=== PATIENT | male | born 1955 | race Caucasian/White ===

== ENCOUNTER 2020-02-28 10:59 | Day surgery (SDC) | payer BC ==
[~2020-02-28] VITALS: Ht 193 cm; Wt 108.9 kg
[2020-02-28] MEDS ORDERED: SODIUM CHLORIDE 0.9% 1,000 ML IVB ONE (13:13)
[2020-02-28] MEDS ORDERED: GLUCAGON HYDROCHLORIDE (RDNA) 1 MG VIAL IV ONE ×2 (13:30→14:15)
[2020-02-28] MEDS ORDERED: FAMOTIDINE (10MG/ML) 2ML VL IV ONE (13:30)
[2020-02-28] MEDS ORDERED: SODIUM CHLORIDE LOCK 10 ML ONE (14:53)
[2020-02-28] MEDS ORDERED: LIDOCAINE VISCOUS 2% 15ML UD ONE (14:53)
[2020-02-28] MEDS: fentaNYL CITRATE 100 MCG/2 ML VL ONE ×3 (15:09→15:14)
[2020-02-28] MEDS: MIDAZOLAM HCL 5 MG/ML-1ML VIAL ONE ×4 (15:09→16:57)
[2020-02-28] MEDS: diphenhdrAMINE HCL 50 MG/1 ML VL ONE ×2 (15:09→15:12)
[2020-02-28 15:58] VITALS: BP 140/82
[2020-02-28 16:33] LABS: Basophils # (auto) 0 10 ^3/uL (0-0.2); Basophils % (auto) 0.4 % (0.0-2.0); Eosinophils # (auto) 0 10 ^3/uL (0-0.8); Eosinophils % (auto) 0.4 % (0.0-7.0); Hematocrit 47.8 % (41.0-53.0); Hemoglobin 16.3 g/dL (13.5-17.5); Mean Corpuscular Hemoglobin 31.4 pg (28.0-32.0); Mean Corpuscular Volume 92.3 fL (80.0-100.0); Monocytes # (auto) 0.9 10 ^3/uL (0-1.3); Monocytes % (auto) 8.7 % (0.0-12.0); Neutrophils # (auto) 8.4 10 ^3/uL (1.6-8.6); Neutrophils % (auto) 80.5 % (37.0-80.0); Platelet Count (auto) 218 10^3/uL (140-450); Red Blood Cells 5.18 10^6/uL (4.5-5.90); Red Cell Distribution Width 14.1 % (11.8-14.3); White Blood Cell 10.4 10^3/uL (4.4-10.8)
[2020-02-28 16:48] LABS: INR 1.01 (0.9-1.15); Partial Thromboplastin Time 27.6 sec (23.64-32.05)
[2020-02-28 16:49] LABS: Calcium 8.7 mg/dL (8.5-10.1); Potassium 3.8 mmol/L (3.5-5.1)
[2020-02-28 16:52] LABS: BUN/Creatinine Ratio 12.8; Bilirubin, Total 1.1 mg/dL (0.2-1.0); Total Protein 7.2 g/dL (6.4-8.2)
== END 2020-02-28 17:39 | disposition home or self-care (01) ==
LOC: ER 10:59 → OR 1 11:00 → ER 17:38 → OR 1 17:39
PROVIDERS: ATTEND Internal Medicine Gastroenterology
DX: T18.128A Food in esophagus causing other injury, initial encounter (principal); K29.50 Unspecified chronic gastritis without bleeding; I25.10 Atherosclerotic heart disease of native coronary artery without angina pectoris; I25.2 Old myocardial infarction; M41.9 Scoliosis, unspecified; Z96.651 Presence of right artificial knee joint; Z11.59 Encounter for screening for other viral diseases; Z98.890 Other specified postprocedural states; Z79.899 Other long term (current) drug therapy; X58.XXXA Exposure to other specified factors, initial encounter; Y93.89 Activity, other specified; Y92.89 Other specified places as the place of occurrence of the external cause; Y99.8 Other external cause status
CPT/HCPCS: 36415; 43239; 71250; 80053; 85025; 85610; 85730; 88305; 88342; 96374; 96375; 99284; J1200; J1610; J2250; J3010; J3490; J7030; 99152

== ENCOUNTER 2020-09-20 19:57 | Inpatient (IN) | payer BC ==
[~2020-09-20] VITALS: Ht 193 cm; Wt 106.3 kg
[2020-09-20] MEDS ORDERED: HYDROcodone-ACET 7.5/325MG TAB PO ONE (23:30)
[2020-09-20] MEDS ORDERED: KETOROLAC TROMETH 30 MG/ML 1ML VIAL IV ONE (23:30)
[2020-09-21 01:45] LABS: Basophils # (auto) 0.1 10 ^3/uL (0-0.2); Basophils % (auto) 0.8 % (0.0-2.0); Eosinophils # (auto) 0.4 10 ^3/uL (0-0.8); Eosinophils % (auto) 4.4 % (0.0-7.0); Hematocrit 38.5 % (41.0-53.0); Hemoglobin 13.4 g/dL (13.5-17.5); Lymphocytes # (auto) 1.4 10 ^3/uL (0.4-5.4); Lymphocytes % (auto) 17.8 % (10.0-50.0); Mean Corpuscular Hemoglobin 31.1 pg (28.0-32.0); Mean Corpuscular Hgb Conc. 34.7 g/dL (32.0-36.0); Mean Corpuscular Volume 89.4 fL (80.0-100.0); Monocytes % (auto) 12.5 % (0.0-12.0); Neutrophils # (auto) 5.2 10 ^3/uL (1.6-8.6); Neutrophils % (auto) 64.5 % (37.0-80.0); Nucleated Red Blood Cells % 0.1 %; Platelet Count (auto) 269 10^3/uL (140-450); Red Blood Cells 4.31 10^6/uL (4.5-5.90); Red Cell Distribution Width 14.2 % (11.8-14.3); White Blood Cell 8.1 10^3/uL (4.4-10.8)
[2020-09-21 02:04] LABS: INR 1.01 (0.9-1.15)
[2020-09-21 02:11] LABS: Albumin 3.1 g/dL (3.4-5.0); BUN/Creatinine Ratio 14.5; Calcium 8.5 mg/dL (8.5-10.1); Potassium 3.8 mmol/L (3.5-5.1)
[2020-09-21 02:14] LABS: Bilirubin, Total 0.8 mg/dL (0.2-1.0); Total Protein 6.7 g/dL (6.4-8.2)
[2020-09-21] MEDS ORDERED: ONDANSETRON HCL 4 MG/2 ML VIAL IV PRN (03:00)
[2020-09-21] MEDS ORDERED: MORPHINE SULF INJ 2 MG/ML SYRINGE 1ML IV PRN (03:00)
[2020-09-21] MEDS: D5W/SOD CHL 0.45% 1,000 ML IV SCH ×2 (03:00→16:20)
[2020-09-21] MEDS ORDERED: ACETAMINOPHEN 325 MG TAB PO PRN (03:00)
[2020-09-21] MEDS ORDERED: DOCUSATE SOD 100 MG CAP PO PRN (03:00)
[2020-09-21] MEDS ORDERED: NITROGLYCERIN 0.4 MG SL TAB SL PRN (03:00)
[2020-09-21 03:39] LABS: Basophils # (auto) 0.1 10 ^3/uL (0-0.2); Basophils % (auto) 0.8 % (0.0-2.0); Eosinophils # (auto) 0.4 10 ^3/uL (0-0.8); Eosinophils % (auto) 5.3 % (0.0-7.0); Hemoglobin 13.2 g/dL (13.5-17.5); Lymphocytes # (auto) 1.5 10 ^3/uL (0.4-5.4); Lymphocytes % (auto) 21.2 % (10.0-50.0); Mean Corpuscular Hemoglobin 31.4 pg (28.0-32.0); Mean Corpuscular Hgb Conc. 34.8 g/dL (32.0-36.0); Monocytes # (auto) 0.8 10 ^3/uL (0-1.3); Monocytes % (auto) 10.8 % (0.0-12.0); Neutrophils # (auto) 4.4 10 ^3/uL (1.6-8.6); Neutrophils % (auto) 61.9 % (37.0-80.0); Platelet Count (auto) 245 10^3/uL (140-450); Red Blood Cells 4.22 10^6/uL (4.5-5.90); Red Cell Distribution Width 14.3 % (11.8-14.3); White Blood Cell 7.1 10^3/uL (4.4-10.8)
[2020-09-21 04:02] LABS: Calcium 8.3 mg/dL (8.5-10.1); Potassium 3.8 mmol/L (3.5-5.1)
[2020-09-21 04:05] LABS: BUN/Creatinine Ratio 16.3; Bilirubin, Total 0.9 mg/dL (0.2-1.0); Total Protein 6.6 g/dL (6.4-8.2)
[2020-09-21 05:02] LABS: INR 1.04 (0.9-1.15); Partial Thromboplastin Time 29.3 sec (23.0-31.2)
[2020-09-21 05:48] VITALS: BP 149/63
[2020-09-21] MEDS ORDERED: SIMV10TA84 PO (07:31)
[2020-09-21] MEDS ORDERED: HYDR-4798 PO (07:31)
[2020-09-21] MEDS ORDERED: FELO5TAB6 PO (07:31)
[2020-09-21] MEDS ORDERED: TAMS0.4C36 PO (07:31)
[2020-09-21] MEDS ORDERED: LISI-648 PO (07:31)
[2020-09-21] MEDS ORDERED: FINA5TAB4 PO (07:31)
[2020-09-21] MEDS ORDERED: ENOXAPARIN SOD 40 MG/0.4 ML SYRINGE SC SCH (10:00)
[2020-09-21] MEDS: HYDROcodone-ACET 5/325MG TAB PO PRN ×2 (10:24→20:19)
[2020-09-21] MEDS: PANTOPRAZOLE 40 MG/10 ML VIAL INJ IV SCH (10:24)
[2020-09-21] MEDS ORDERED: amLODIPine BESYLATE 5 MG TAB PO ONE (11:45)
[2020-09-21 11:51] LABS: Urine WBC None Seen /hpf (0 - 3)
[2020-09-21 12:10] LABS: Urine Bacteria NONE SEEN /hpf (None Seen); Urine Blood Negative /uL (Negative); Urine Mucus FEW (None Seen); Urine Specific Gravity 1.017 (1.001-1.035)
[2020-09-21 16:00] VITALS: BP 135/69
[2020-09-21] MEDS: TAMSULOSIN HYDROCHLORIDE 0.4 MG CAP PO SCH (18:12)
[2020-09-21 22:00] VITALS: BP 125/66
[2020-09-21] MEDS: ATORVASTATIN 20 MG TAB PO SCH (22:28)
[2020-09-22] MEDS: MORPHINE SULFATE 4 MG/ML SYR/VIAL IV PRN ×4 (00:39→21:03)
[2020-09-22 05:00] VITALS: BP 109/65
[2020-09-22] MEDS: D5W/SOD CHL 0.45% 1,000 ML IV SCH (06:36)
[2020-09-22 07:03] LABS: Basophils # (auto) 0.1 10 ^3/uL (0-0.2); Eosinophils # (auto) 0.4 10 ^3/uL (0-0.8); Eosinophils % (auto) 6.7 % (0.0-7.0); Hematocrit 37.1 % (41.0-53.0); Hemoglobin 12.9 g/dL (13.5-17.5); Lymphocytes # (auto) 1.2 10 ^3/uL (0.4-5.4); Lymphocytes % (auto) 23.6 % (10.0-50.0); Mean Corpuscular Hemoglobin 31.3 pg (28.0-32.0); Mean Corpuscular Hgb Conc. 34.8 g/dL (32.0-36.0); Monocytes # (auto) 0.6 10 ^3/uL (0-1.3); Monocytes % (auto) 11.8 % (0.0-12.0); Neutrophils % (auto) 56.9 % (37.0-80.0); Nucleated Red Blood Cells % 0.1 %; Platelet Count (auto) 217 10^3/uL (140-450); Red Blood Cells 4.13 10^6/uL (4.5-5.90); Red Cell Distribution Width 14.3 % (11.8-14.3); White Blood Cell 5.3 10^3/uL (4.4-10.8)
[2020-09-22] MEDS ORDERED: ceFAZolin 1GM/50ML 100 ML IV ONE (07:04)
[2020-09-22 07:22] LABS: Potassium 3.8 mmol/L (3.5-5.1)
[2020-09-22] MEDS ORDERED: fentaNYL CITRATE 100 MCG/2 ML VL ONE ×2 (07:23→09:24)
[2020-09-22] MEDS ORDERED: MIDAZOLAM HCL 1MG/1ML-2 ML VIAL ONE (07:23)
[2020-09-22] MEDS ORDERED: SUCCINYLCHOLINE CHLORIDE 20 MG/ML 10ML VIAL IV ONE (07:24)
[2020-09-22 07:27] LABS: Albumin 2.9 g/dL (3.4-5.0); BUN/Creatinine Ratio 13.7; Calcium 8.5 mg/dL (8.5-10.1)
[2020-09-22] MEDS ORDERED: ROCURONIUM 10MG/ML 10ML VIAL IV ONE (07:27)
[2020-09-22 07:30] LABS: Bilirubin, Total 0.8 mg/dL (0.2-1.0); Total Protein 6.3 g/dL (6.4-8.2)
[2020-09-22] MEDS ORDERED: PROPOFOL 10 MG/ML 20 ML IV ONE (07:31)
[2020-09-22] MEDS ORDERED: BUPIVACAINE HCL 50 ML ONE (08:06)
[2020-09-22] MEDS ORDERED: DexAMETHasone SOD PHOS 10MG/1ML VIAL INJ ONE (08:30)
[2020-09-22] MEDS ORDERED: ONDANSETRON HCL 4 MG/2 ML VIAL ONE (08:33)
[2020-09-22] MEDS ORDERED: GLYCOPYRROLATE 0.2 MG/ML 1ML VIAL ONE (08:37)
[2020-09-22] MEDS ORDERED: NEOSTIGMINE 1 MG/ML INJ (10mg/10ML VIAL) ONE (08:37)
[2020-09-22] MEDS ORDERED: HYDROmorphone HCL 2 MG/ML VL IV PRN (09:00)
[2020-09-22] MEDS ORDERED: METOCLOPRAMIDE HCL 5MG/ml INJ 2ml VIAL IV PRN (09:00)
[2020-09-22] MEDS ORDERED: METOCLOPRAMIDE HCL 5MG/ml INJ 2ml VIAL ONE (09:10)
[2020-09-22] MEDS: HYDROmorphone HCL 2 MG/ML VL IV PRN ×4 (09:10→09:50)
[2020-09-22] MEDS ORDERED: HYDROmorphone HCL 2 MG/ML VL ONE (09:10)
[2020-09-22] MEDS ORDERED: fentaNYL CITRATE 100 MCG/2 ML VL IV PRN (09:30)
[2020-09-22] MEDS ORDERED: ENOXAPARIN SOD 40 MG/0.4 ML SYRINGE SC SCH (10:00)
[2020-09-22 10:38] VITALS: BP 131/77
[2020-09-22] MEDS: amLODIPine BESYLATE 5 MG TAB PO SCH (11:05)
[2020-09-22] MEDS: PANTOPRAZOLE 40 MG/10 ML VIAL INJ IV SCH (11:05)
[2020-09-22] MEDS: FINASTERIDE 5 MG TAB PO SCH (11:05)
[2020-09-22] MEDS: LISINOPRIL 10 MG TAB PO SCH (11:06)
[2020-09-22] MEDS: LACTATED RINGER'S 1,000 ML IV SCH ×2 (13:28→21:02)
[2020-09-22 16:00] VITALS: BP 103/69
[2020-09-22] MEDS: TAMSULOSIN HYDROCHLORIDE 0.4 MG CAP PO SCH (17:46)
[2020-09-22] MEDS: ATORVASTATIN 20 MG TAB PO SCH (21:02)
[2020-09-22 21:49] VITALS: BP 104/67
[2020-09-23] MEDS: MORPHINE SULFATE 4 MG/ML SYR/VIAL IV PRN ×2 (03:05→21:16)
[2020-09-23 05:00] VITALS: BP 102/56
[2020-09-23 08:00] VITALS: BP 100/64
[2020-09-23] MEDS: PANTOPRAZOLE 40 MG/10 ML VIAL INJ IV SCH (10:40)
[2020-09-23] MEDS: FINASTERIDE 5 MG TAB PO SCH (10:41)
[2020-09-23] MEDS: ENOXAPARIN SOD 40 MG/0.4 ML SYRINGE SC SCH (10:41)
[2020-09-23] MEDS: amLODIPine BESYLATE 5 MG TAB PO SCH (11:27)
[2020-09-23] MEDS: LISINOPRIL 10 MG TAB PO SCH (11:31)
[2020-09-23] MEDS: LACTATED RINGER'S 1,000 ML IV SCH (11:40)
[2020-09-23 16:00] VITALS: BP 120/64
[2020-09-23] MEDS: HYDROcodone-ACET 5/325MG TAB PO PRN (17:33)
[2020-09-23] MEDS: TAMSULOSIN HYDROCHLORIDE 0.4 MG CAP PO SCH (18:02)
[2020-09-23] MEDS: ATORVASTATIN 20 MG TAB PO SCH (21:17)
[2020-09-23 22:00] VITALS: BP 115/71
[2020-09-24 05:56] VITALS: BP 103/51
[2020-09-24 08:00] VITALS: BP 115/67
[2020-09-24] MEDS: PANTOPRAZOLE 40 MG/10 ML VIAL INJ IV SCH (08:37)
[2020-09-24] MEDS: LISINOPRIL 10 MG TAB PO SCH (08:38)
[2020-09-24] MEDS: FINASTERIDE 5 MG TAB PO SCH (08:38)
[2020-09-24] MEDS: ENOXAPARIN SOD 40 MG/0.4 ML SYRINGE SC SCH (08:38)
[2020-09-24] MEDS: amLODIPine BESYLATE 5 MG TAB PO SCH (08:39)
[2020-09-24] MEDS: HYDROcodone-ACET 5/325MG TAB PO PRN (08:40)
[2020-09-24 11:46] VITALS: BP 115/67
== END 2020-09-24 12:45 | disposition home health service (06) | DRG 482 ==
LOC: ER 19:57 → EDBD 19:57 → TELE 09-21 03:07 → TELE-EAST 09-21 06:02 → TELE-CENTR 09-23 11:13
PROVIDERS: ADMIT Nurse Practitioner Family; ATTEND Family Medicine
PROC: 0QS734Z Reposition Left Upper Femur with Internal Fixation Device, Percutaneous Approach (ICD-10-PCS; principal; 2020-09-22 07:25)
DX: S72.012A Unspecified intracapsular fracture of left femur, initial encounter for closed fracture (principal); E78.5 Hyperlipidemia, unspecified; I10 Essential (primary) hypertension; I25.10 Atherosclerotic heart disease of native coronary artery without angina pectoris; I73.9 Peripheral vascular disease, unspecified; M16.12 Unilateral primary osteoarthritis, left hip; Z20.822 Contact with and (suspected) exposure to COVID-19; Z96.653 Presence of artificial knee joint, bilateral; M81.0 Age-related osteoporosis without current pathological fracture; N40.0 Benign prostatic hyperplasia without lower urinary tract symptoms; W01.0XXA Fall on same level from slipping, tripping and stumbling without subsequent striking against object, initial encounter; Z82.49 Family history of ischemic heart disease and other diseases of the circulatory system; Z87.891 Personal history of nicotine dependence; Z98.1 Arthrodesis status; Y93.89 Activity, other specified; Y92.89 Other specified places as the place of occurrence of the external cause; Y99.8 Other external cause status
CPT/HCPCS: 36415; 71045; 73501; 73502; 80053; 81001; 83036; 85025; 85610; 85730; 86850; 86900; 86901; 87081; 87426; 93005; 96374; A4565; C9113; G0378; J0330; J0690; J1100; J1885; J2250; J2405; J2704; J3490

== ENCOUNTER 2020-11-25 13:22 | Emergency (ER) | payer BC ==
[~2020-11-25] VITALS: Ht 193 cm; Wt 106.6 kg
[~2020-11-25 13:22] MED LIST: FELO5TAB6 PO; FINA5TAB4 PO; HYDR-4798 PO; LISI-648 PO; SIMV10TA84 PO; TAMS0.4C36 PO
[2020-11-25 13:38] VITALS: BP 137/64
== END 2020-11-25 17:07 | disposition home or self-care (01) ==
LOC: ER 13:22
DX: M79.89 Other specified soft tissue disorders (principal); I10 Essential (primary) hypertension; E78.5 Hyperlipidemia, unspecified; Z79.899 Other long term (current) drug therapy
CPT/HCPCS: 93971

== ENCOUNTER 2021-04-09 17:38 | Emergency (ER) | payer BC, OTHER ==
[~2021-04-09] VITALS: Ht 193 cm; Wt 104.3 kg
[~2021-04-09 17:38] MED LIST changes: -LISI-648 PO; +LISI-716 PO
[2021-04-09] MEDS ORDERED: GLUCAGON HYDROCHLORIDE (RDNA) 1 MG VIAL IV ONE (18:30)
[2021-04-09] MEDS ORDERED: LIDOCAINE VISCOUS 2% 15ML UD PO ONE (19:45)
[2021-04-10 02:00] VITALS: BP 156/74
== END 2021-04-10 02:40 | disposition home or self-care (01) ==
LOC: ER 17:38
DX: F45.8 Other somatoform disorders (principal); R09.89 Other specified symptoms and signs involving the circulatory and respiratory systems; I11.0 Hypertensive heart disease with heart failure; I50.9 Heart failure, unspecified; E78.5 Hyperlipidemia, unspecified; Z79.899 Other long term (current) drug therapy
CPT/HCPCS: 70360; 96374; 99285; J1610